=== PATIENT | male | born 1995 | race Caucasian/White ===

== ENCOUNTER 2016-12-29 14:59 | Inpatient (IN) | payer MEDICAID ==
--- NOTE | 2016-12-29 15:26 | EDPHY ---
HPI/HX/ROS/PE/MDM Narrative: CHIEF COMPLAINT: Infected spider bite HISTORY OF PRESENT ILLNESS: This patient is a 21 year old male complaining of pain secondary to two lesions on his back for the last one and a half weeks. He states he thinks he was bitten by a spider, and has since developed MRSA in the area. He reports he has history of MRSA infection in his ankle and arm. This is his third visit for this problem in the last three days. He was previously seen at [facility] and [facility] in [place]. He readily admits he has not filled his prescription for Bactrim, and states he will not be able to, and he is feeling quite helpless. He states he is currently homeless, and does not have anywhere clean and safe to recover. He endorses subjective fever. No chills, chest pain, shortness of breath, palpitations, vomiting, diarrhea, urinary complaints, headache, lightheadedness. REVIEW OF SYSTEMS: Aside from elements discussed in the HPI, a comprehensive 10-point review of systems was reviewed and is negative. PAST MEDICAL HISTORY: MRSA ankle and arm. SOCIAL HISTORY: IV drug use. Originally from [place]. VITAL SIGNS: Reviewed by me GENERAL: Disheveled, dirty clothing and skin. HEENT: Atraumatic. Mouth: moist mucous membranes. LUNGS: Clear to auscultation bilaterally, no wheezes, rhonchi or rales. CARDIAC: Regular rate and rhythm, no rubs, murmurs or gallops. ABDOMEN: Trace erythema spreading to right abdominal wall. Soft, nontender, nondistended, bowel sounds normal. BACK: 10cm x 4cm erythematous area in right paraspinous region. Drainage from two I&D sites, packing remains in one site. Erythema spreading to right anterior abdominal wall. EXTREMITIES: No trauma. No edema. Range of motion is normal throughout. NEURO: Alert and oriented, grossly nonfocal. SKIN: Warm and dry, no rash. PSYCHIATRIC: Normal mentation, no agitation. Portions of this note were transcribed by a medical chemist. I personally performed a history, physical exam, medical decision making, and confirmed accuracy of information the transcribed note. (Solange Fields) ED Course: This patient is a 21 year old male seen in three emergency room visits in the last three days for treatment of abscess in his right lateral paraspinous area. Plan for I&D of area. See procedure note. Plan for admission for continued management of his abscesses. 17:52 Dr. Steele, hospitalist, accepts admission. 18:[address] Hart. Lateral abscess drained and packed. Medial abscess packed, 1cm x 1cm x 2cm pocket remains. No evidence of infection tracking up the patient's back at this time. (Solange Fields) MDM: Procedure: Incision and Drainage abscess. The patient's abscess was located on the back. Risks, benefits, alternatives discussed with the patient and consent obtained. The area was prepped and draped in sterile fashion. The patient received local anesthesia with 1% lidocaine with epinephrine. The abscess was incised with a #11 blade and purulent drainage was expressed. The patient tolerated the procedure well. Quarter-inch iodoform packing placed The procedure was performed by myself. ( Karla Block) - Data Points Imaging Results: Imaging Impressions Chest Ultrasound 12/29/16 17:10 Impression: Two right posterior back fluid collections with the largest measuring 2 cm representing phlegmon/early abscess fluid collections. Findings and recommendations discussed with emergency department physician, Solange Fields MD at 1820 hours on December 29, 2016. Final report concurs with initial preliminary interpretation. Laboratory Results: Laboratory Results 12/29/16 15:15 12/29/16 15:15 12/29/16 12/29/16 12/29/16 16:43 15:15 15:15 WBC RBC Hgb POC Hgb Hct POC Hct MCV MCH MCHC RDW Plt Count MPV Neut % (Auto) Lymph % (Auto) Chester % (Auto) Eos % (Auto) Baso % (Auto) Nucleat RBC Rel Count Absolute Neuts (auto) Absolute Lymphs (auto) Absolute Monos (auto) Absolute Eos (auto) Absolute Basos (auto) Absolute Nucleated RBC Immature Gran % Immature Gran # PT 12.0 SEC SEC (12.0-15.0) INR 0.90 (0.83-1.16) APTT 29.7 SEC SEC (23.0-38.0) VBG Lactic Acid 1.4 mmol/L mmol/L (0.7-2.1) POC Sodium Sodium POC Potassium Potassium POC Chloride Chloride Carbon Dioxide Anion Gap POC BUN BUN Creatinine POC Creatinine Estimated GFR Glucose POC Glucose Calcium Total Bilirubin HIV 1&2 Antibody Pending 12/29/16 12/29/16 12/29/16 15:15 15:15 15:03 WBC 12.45 10^3/uL H 10^3/uL (3.80-9.50) RBC 4.95 10^6/uL 10^6/uL (4.40-6.38) Hgb 15.0 g/dL g/dL (13.7-17.5) POC Hgb 16.7 gm/dL gm/dL (13.7-17.5) Hct 45.2 % % (40.0-51.0) POC Hct 49 % % (40-51) MCV 91.3 fL fL (81.5-99.8) MCH 30.3 pg pg (27.9-34.1) MCHC 33.2 g/dL g/dL (32.4-36.7) RDW 12.7 % % (11.5-15.2) Plt Count 329 10^3/uL 10^3/uL (150-400) MPV 9.7 fL fL (8.7-11.7) Neut % (Auto) 62.0 % % (39.3-74.2) Lymph % (Auto) 23.2 % % (15.0-45.0) Chester % (Auto) 9.4 % % (4.5-13.0) Eos % (Auto) 4.4 % % (0.6-7.6) Baso % (Auto) 0.6 % % (0.3-1.7) Nucleat RBC Rel Count 0.0 % % (0.0-0.2) Absolute Neuts (auto) 7.71 10^3/uL H 10^3/uL (1.70-6.50) Absolute Lymphs (auto) 2.89 10^3/uL 10^3/uL (1.00-3.00) Absolute Monos (auto) 1.17 10^3/uL H 10^3/uL (0.30-0.80) Absolute Eos (auto) 0.55 10^3/uL H 10^3/uL (0.03-0.40) Absolute Basos (auto) 0.08 10^3/uL 10^3/uL (0.02-0.10) Absolute Nucleated RBC 0.00 10^3/uL 10^3/uL (0-0.01) Immature Gran % 0.4 % % (0.0-1.1) Immature Gran # 0.05 10^3/uL 10^3/uL (0.00-0.10) PT INR APTT VBG Lactic Acid POC Sodium 141 mEq/L mEq/L (134-144) Sodium 138 mEq/L mEq/L (134-144) POC Potassium 3.8 mEq/L mEq/L (3.3-5.0) Potassium 4.2 mEq/L mEq/L (3.5-5.2) POC Chloride 98 mEq/L mEq/L (97-110) Chloride 99 mEq/L mEq/L (97-110) Carbon Dioxide 28 mEq/l mEq/l (22-31) Anion Gap 11 mEq/L mEq/L (8-16) POC BUN 8 mg/dL mg/dL (7-23) BUN 9 mg/dL mg/dL (7-23) Creatinine 0.8 mg/dL mg/dL (0.7-1.3) POC Creatinine 0.8 mg/dL mg/dL (0.7-1.3) Estimated GFR > 60 Glucose 73 mg/dL mg/dL (70-100) POC Glucose 82 mg/dL mg/dL (70-100) Calcium 9.5 mg/dL mg/dL (8.5-10.4) Total Bilirubin 0.5 mg/dL mg/dL (0.1-1.4) HIV 1&2 Antibody Medications Given: Discontinued Medications Fentanyl (Sublimaze) 75 mcg IVP EDNOW ONE Stop: 12/29/16 16:33 Last Admin: 12/29/16 16:41 Dose: 75 mcg Vancomycin/Sodium Chloride (Vancomycin 1 Gm (Premix)) 250 mls @ 250 mls/hr IV EDNOW ONE PRN Reason: Protocol Stop: 12/29/16 17:14 Last Admin: 12/29/16 16:21 Dose: 250 mls Point of Care Test Results: 12/29/16 15:03 POC Sodium 141 POC Potassium 3.8 POC Chloride 98 POC BUN 8 POC Creatinine 0.8 POC Glucose 82 General Time Seen by Provider: 12/29/16 15:19 Initial Vital Signs: Initial Vital Signs Temperature (C) 36.5 C 12/29/16 14:59 Heart Rate 92 12/29/16 14:59 Respiratory Rate 14 12/29/16 14:59 Blood Pressure 133/86 H 12/29/16 14:59 O2 Sat (%) 98 12/29/16 14:59 O2 Delivery Mode Room Air Allergies/Adverse Reactions: No Known Allergies Allergy (Unverified 12/29/16 15:19) Home Medications: Medication Instructions Recorded NK [No Known Home Meds] 12/29/16 Departure - Departure Disposition: [facility] Inpatient Acute Clinical Impression: Abscess of lower back Condition: Fair Report Scribed for: Solange Fields Report Scribed by: Carol Aragon Date of Report: 12/29/16 Time of Report: 15:25
[2016-12-29 15:59] LABS: % IMMATURE GRANULYOCYTES 0.4 % (0.0-1.1); ABSOLUTE IMMATURE GRANULOCYTES 0.05 10^3/uL (0.00-0.10); ADD DIFF? NO; ADD MORPH? NO; ADD SCAN? NO; ATYPICAL LYMPHOCYTE FLAG 40 (0-99); FRAGMENT RBC FLAG 0 (0-99); HEMATOCRIT 45.2 % (40.0-51.0); LEFT SHIFT FLG 10 (0-99); LIPEMIA HEMOLYSIS FLAG 80 (0-99); MEAN CELL HEMOGLOBIN 30.3 pg (27.9-34.1); MEAN CELL HEMOGLOBIN CONCENTR. 33.2 g/dL (32.4-36.7); MEAN CELL VOLUME 91.3 fL (81.5-99.8); MEAN PLATELET VOLUME 9.7 fL (8.7-11.7); PLATELET CLUMPS FLAG 10 (0-99); PLATELET COUNT 329 10^3/uL (150-400); RED BLOOD CELL COUNT 4.95 10^6/uL (4.40-6.38); RED CELL DISTRIBUTION WIDTH 12.7 % (11.5-15.2)
[2016-12-29 16:08] LABS: ANION GAP 11 mEq/L (8-16); BILIRUBIN,TOTAL 0.5 mg/dL (0.1-1.4); CALCIUM 9.5 mg/dL (8.5-10.4); CARBON DIOXIDE 28 mEq/l (22-31); CHLORIDE 99 mEq/L (97-110); CREATININE 0.8 mg/dL (0.7-1.3); GLOMERULAR FILTRATION RATE > 60; GLUCOSE 73 mg/dL (70-100); INR 0.9 (0.83-1.16); POTASSIUM 4.2 mEq/L (3.5-5.2); SODIUM 138 mEq/L (134-144)
[2016-12-29 16:09] LABS: APTT 29.7 SEC (23.0-38.0)
[2016-12-29] MEDS ORDERED: VANCOMYCIN HCL/NORMAL SALINE 250 ML IV ONE (16:15)
[2016-12-29] MEDS ORDERED: fentaNYL 100 MCG/2 ML INJ IVP ONE (16:32)
[2016-12-29] MEDS ORDERED: ONDANSETRON 4 MG/2 ML VIAL IVP PRN (18:12)
[2016-12-29] MEDS ORDERED: ZOLPIDEM TARTRATE 5 MG TAB PO PRN (18:12)
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
[2016-12-29] MEDS: risperiDONE 0.5 MG TAB PO SCH (22:37)
[2016-12-30] MEDS: VANCOMYCIN 1.25 GM in D5W 250 ML IV SCH ×2 (05:08→18:06)
[2016-12-30 05:11] LABS: % IMMATURE GRANULYOCYTES 0.3 % (0.0-1.1); ABSOLUTE IMMATURE GRANULOCYTES 0.03 10^3/uL (0.00-0.10); ADD DIFF? NO; ADD MORPH? NO; ADD SCAN? NO; ATYPICAL LYMPHOCYTE FLAG 30 (0-99); FRAGMENT RBC FLAG 0 (0-99); HEMATOCRIT 42.9 % (40.0-51.0); HEMOGLOBIN 14.4 g/dL (13.7-17.5); LEFT SHIFT FLG 0 (0-99); LIPEMIA HEMOLYSIS FLAG 80 (0-99); MEAN CELL HEMOGLOBIN 29.9 pg (27.9-34.1); MEAN CELL HEMOGLOBIN CONCENTR. 33.6 g/dL (32.4-36.7); MEAN CELL VOLUME 89.2 fL (81.5-99.8); MEAN PLATELET VOLUME 9.2 fL (8.7-11.7); PLATELET CLUMPS FLAG 0 (0-99); PLATELET COUNT 278 10^3/uL (150-400); RED BLOOD CELL COUNT 4.81 10^6/uL (4.40-6.38); RED CELL DISTRIBUTION WIDTH 12.7 % (11.5-15.2)
[2016-12-30 05:21] LABS: ANION GAP 10 mEq/L (8-16); CALCIUM 9.4 mg/dL (8.5-10.4); CARBON DIOXIDE 25 mEq/l (22-31); CHLORIDE 103 mEq/L (97-110); CREATININE 0.7 mg/dL (0.7-1.3); GLOMERULAR FILTRATION RATE > 60; GLUCOSE 98 mg/dL (70-100); POTASSIUM 4.3 mEq/L (3.5-5.2); SODIUM 138 mEq/L (134-144)
[2016-12-30] MEDS: KETOROLAC 30 MG/1 ML SDV IVP PRN ×2 (10:46→18:27)
[2016-12-30] MEDS ORDERED: BUPIVACAINE 0.5% 30 ML SDV ONE (11:53)
--- NOTE | 2016-12-30 13:02 | WOCRNPDOC ---
EVANS Advanced Assessment Note - Skin Integrity Problem, Advanced Assess Right Lower Back Surgical Wound/Incision Dressing Type: ABD Pad, Packing (1/4 inch ) Dressing Description: Intact, Shadowed Exudate Amount: Moderate Exudate Characteristic(s): Sanguinopurulent Integumentary Issue Intervention: Dressing Removed Henrique Wound Tissue: Erythema (to 3 cm henrique both wounds), Swollen, Painful/Tender Henrique Wound Swelling: Moderate Wound Bed Constitution: Tunneling (medial wound 4.5 cm at 4 oclock ), Undermining (bilateral wounds 0.6 cm circumferentially) Site Odor: Slight, Foul Site Measurement - Head-to-Toe Length X Width X Depth (cm): Medial: 0.6x0.8x0.7 , Lateral: 1.3x1x0.5 Extremity Temperature: Warm Skin Integrity Problem Comment: Bilateral I and D sites with ongoing purulence and pain. Dr. Diane ID in room for consult. Surgery consult placed. Covered area with 4x4 gauze for Dr[address] Melendez to assess. Please reconsult prn per Dr. Melendez request.
[2016-12-30] MEDS ORDERED: LR 1,000 ML IV ONE (15:54)
[2016-12-30] MEDS ORDERED: MIDAZOLAM 2 MG/2 ML VIAL IVP ONE (16:22)
--- NOTE | 2016-12-30 16:22 | PDANEPAE ---
ANE History of Present Illness 21 yo M with STI back here for I+D ANE Past Medical History - Pulmonary History Hx Oxygen in Use at Home: No - Endocrine History Hx Diabetes: No ANE Review of Systems - Exercise capacity Exercise capacity: >=4 METS - Systems Skin: Reports: other (soft tissue infection back) Neurological: Reports: other (blind R eye) ANE Patient History - Allergies Allergies/Adverse Reactions: No Known Allergies Allergy (Unverified 12/29/16 15:19) - Home Medications Home Medications: NK [No Known Home Meds] 12/29/16 [Last Taken Unknown] - NPO status NPO Since - Liquids (Date): 12/30/16 NPO Since - Liquids (Time): 08:00 NPO Since - Solids (Date): 12/30/16 NPO Since - Solids (Time): 08:00 - Anes Hx Anes Hx: no prior problems - Smoking Hx Smoking Status: Current every day smoker - Alcohol Use Alcohol Use: None - Family Anes Hx Family Anes Hx: none ANE Labs/Vital Signs - Labs Result Diagrams: 12/30/16 04:42 12/30/16 04:42 - Vital Signs Blood Pressure: 133/86 Heart Rate: 79 Respiratory Rate: 14 O2 Sat (%): 97 Height: 190.5 cm Weight: 83.915 kg ANE Physical Exam - Airway Neck exam: FROM Mallampati Score: Class 2 Mouth exam: normal dental/mouth exam - Pulmonary Pulmonary: no respiratory distress, clear to auscultation - Cardiovascular Cardiovascular: regular rate and rhythym, no murmur, rub, or gallop - ASA Status ASA Status: II ANE Anesthesia Plan Anesthesia Plan: general endotracheal anesthesia
[2016-12-30] MEDS ORDERED: MIDAZOLAM 2 MG/2 ML VIAL ONE (16:23)
[2016-12-30] MEDS ORDERED: fentaNYL 100 MCG/2 ML INJ ONE ×2 (16:28→18:25)
[2016-12-30] MEDS ORDERED: PROPOFOL 200 MG/20 ML VIAL ONE ×2 (16:28)
[2016-12-30] MEDS ORDERED: ROCURONIUM 50 MG/5 ML VIAL ONE (16:33)
[2016-12-30] MEDS ORDERED: DEXAMETHASONE 4 MG/ML VIAL ONE (17:10)
[2016-12-30] MEDS ORDERED: ONDANSETRON 4 MG/2 ML VIAL ONE (17:10)
[2016-12-30] MEDS ORDERED: THROMBIN (BOVINE) 5,000 UNIT VIAL TP ONE (17:14)
[2016-12-30] MEDS ORDERED: fentaNYL 100 MCG/2 ML INJ IVP PRN (17:16)
[2016-12-30] MEDS ORDERED: OXYCODONE/APAP 5/325 TAB PO PRN (17:16)
[2016-12-30] MEDS ORDERED: HYDROmorphONE/DILAUDID 1 MG/ML SYR IVP PRN (17:16)
[2016-12-30] MEDS ORDERED: NALOXONE HCL 0.4 MG/ML INJ IVP PRN (17:16)
[2016-12-30] MEDS ORDERED: ACETAMINOPHEN 500 MG TAB PO PRN (17:16)
[2016-12-30] MEDS ORDERED: ONDANSETRON 4 MG/2 ML VIAL IVP PRN (17:16)
[2016-12-30] MEDS ORDERED: PROMETHAZINE HCL 25 MG/ML INJ IVP PRN (17:16)
--- NOTE | 2016-12-30 17:32 | HOSPPROG ---
Hospitalist Progress Note Assessment/Plan: * MRSA back abscess -reportedly MRSA found at other hospital -IV Vanco - consult ID - d/w Dr. Diane -needs further debridement - d/w Dr. Melendez - to OR * IVDA -HIV negative * Bipolar -needs outpatient mental health follow-up Subjective: Lots of pain in back. Very hot. Objective: Vital Signs Temp Pulse Resp BP Pulse Ox 36.6 C 79 14 133/86 H 97 12/30/16 13:31 12/30/16 16:22 12/30/16 16:22 12/30/16 16:22 12/30/16 16:22 Laboratory Results 12/30/16 04:42 12/30/16 04:42 12/29/16 12/30/16 12/31/16 05:59 05:59 05:59 Intake Total 1250 Output Total 800 Balance 1250 -800 PT 12.0 SEC (12.0-15.0) 12/29/16 15:15 INR 0.90 (0.83-1.16) 12/29/16 15:15 US reviewed - still with abscess - suspect this was done prior to ER I&D - Physical Exam Constitutional: no apparent distress, appears nourished, not in pain Cardiovascular: regular rate and rhythym, no murmur, rub, or gallop Respiratory: no respiratory distress, no rales or rhonchi, clear to auscultation Gastrointestinal: normoactive bowel sounds, soft, non-tender abdomen, no palpable masses Skin: erythema, induration, fluctuance, rash, other (purulent drainage from large very tender back abscess) Neurologic: AAOx3, sensation intact bilaterally Psychiatric: interacting appropriately, not anxious, not encephalopathic, thought process linear ICD10 Worksheet Patient Problems: Problems Problem Status Onset Abscess of lower back Acute - ICD10 Problem Qualifiers (1) Abscess of lower back
--- NOTE | 2016-12-30 17:39 | POSTANESTH ---
Post Anesthetic Evaluation Cardiovascular Status: Normal, Stable, Similar to Pre-Op Cond Respiratory Status: Normal, Stable, Similar to Pre-op Cond. Level of Consciousness/Mental Status: Moderately Sleepy Pain Control: Adequate, Prn Tx Ordered Nausea/Vomiting Control: Adequate, Prn Tx Ordered Complications Possibly Related to Anesthesia: None Noted
--- NOTE | 2016-12-30 18:15 | SOAPPROG ---
SOAP Progress Note Assessment/Plan: Assessment: 21-YEAR-OLD MALE WITH MRSA ABSCESSES/ NOW WITH A LARGE NECROTIC DRAINING ABSCESS CAVITY ON HIS BACK WHICH WAS I&D'd IN THE EMERGENCY ROOM NEEDS DRAINAGE AND DEBRIDEMENT/RISKS AND OPTIONS FULLY DISCUSSED AND HE WISHES TO PROCEED Plan: EXCISIONAL DEBRIDEMENT OF A BACK ABSCESS 12/30/16 18:11 Objective: Vital Signs Temp Pulse Resp BP Pulse Ox 36.2 C 79 14 133/86 H 97 12/30/16 17:46 12/30/16 16:22 12/30/16 16:22 12/30/16 16:22 12/30/16 16:22 Laboratory Results 12/30/16 04:42 12/30/16 04:42 12/29/16 12/30/16 12/31/16 05:59 05:59 05:59 Intake Total 1250 Output Total 800 Balance 1250 -800 PT 12.0 SEC (12.0-15.0) 12/29/16 15:15 INR 0.90 (0.83-1.16) 12/29/16 15:15 ICD10 Worksheet Patient Problems: Problems Problem Status Onset Abscess of lower back Acute
--- NOTE | 2016-12-30 18:17 | POSTOPPROG ---
Post Op Note Date of Operation: 12/30/16 Surgeon: Raciel Melendez Anesthesiologist: IVAN Anesthesia: GET(General Endotracheal) Pre-op Diagnosis: BACK ABSCESS Post-op Diagnosis: SAME Indication: INFECTION Procedure: EXCISIONAL DEBRIDEMENT OF A BACK ABSCESS Findings: NECROTIC ABSCESS TISSUE CONSISTENT WITH MRSA Inf/Abcess present in the surg proc area at time of surgery?: Yes Depth: Superfical (Skin SQ) EBL: Minimal Complications: NONE Specimen(s): CULTURE AND NECROTIC TISSUE
[2016-12-30] MEDS ORDERED: KETOROLAC 30 MG/1 ML SDV ONE (18:25)
[2016-12-30] MEDS: risperiDONE 0.5 MG TAB PO SCH (20:06)
[2016-12-30] MEDS: oxyCODONE IR 5 MG TAB PO PRN (20:06)
[2016-12-31] MEDS: oxyCODONE IR 5 MG TAB PO PRN ×3 (03:42→19:41)
[2016-12-31 04:22] LABS: % IMMATURE GRANULYOCYTES 0.5 % (0.0-1.1); ABSOLUTE IMMATURE GRANULOCYTES 0.05 10^3/uL (0.00-0.10); ADD DIFF? NO; ADD MORPH? NO; ADD SCAN? NO; ATYPICAL LYMPHOCYTE FLAG 30 (0-99); FRAGMENT RBC FLAG 0 (0-99); HEMATOCRIT 41.5 % (40.0-51.0); LEFT SHIFT FLG 10 (0-99); LIPEMIA HEMOLYSIS FLAG 80 (0-99); MEAN CELL HEMOGLOBIN 30.4 pg (27.9-34.1); MEAN CELL HEMOGLOBIN CONCENTR. 33.7 g/dL (32.4-36.7); MEAN PLATELET VOLUME 9.4 fL (8.7-11.7); PLATELET CLUMPS FLAG 0 (0-99); PLATELET COUNT 354 10^3/uL (150-400); RED BLOOD CELL COUNT 4.61 10^6/uL (4.40-6.38); RED CELL DISTRIBUTION WIDTH 12.4 % (11.5-15.2)
[2016-12-31] MEDS: VANCOMYCIN 1.5 GM in D5W 250 ML IV SCH ×2 (05:01→17:16)
[2016-12-31] MEDS: VANCOMYCIN 1.25 GM in D5W 250 ML IV SCH (05:05)
[2016-12-31] MEDS: KETOROLAC 30 MG/1 ML SDV IVP PRN (08:04)
[2016-12-31] MEDS: ACETAMINOPHEN 325 MG TAB PO PRN (08:04)
[2016-12-31] MEDS ORDERED: LORazepam 2 MG/ML INJ IVP PRN (10:48)
[2016-12-31] MEDS ORDERED: ZIPRASIDONE MESYLATE 20 MG VIAL IM ONE (10:50)
[2016-12-31] MEDS: LORazepam 2 MG/ML INJ IVP PRN ×2 (11:05→16:13)
--- NOTE | 2016-12-31 12:35 | PCMIDPN ---
Assessment/Plan: Assessment/Plan: 1. Necrotic back abscess: s/p I &D - Currently on IV Vanco. Trough appears to have been drawn early. Now on 1.5gm dosing. -Cultures in progress. GS with gpc in clusters. -Appreciate surgery's assistance in care - Will follow up on cultures and adjust accordingly -wbc trending down. HIV neg. blood cx ngtd Meds vanco 1.5gm q12- Subjective: patient hungry and wants second lunch. denies sob, abd pain or diarrhea. slope tender. Objective: Vital Signs Temp Pulse Resp BP Pulse Ox 36.6 C 67 14 145/86 H 95 12/31/16 12:00 12/31/16 12:00 12/31/16 12:00 12/31/16 12:00 12/31/16 12:00 Microbiology 12/30/16 17:30 Gram Stain - Final Back - Tissue 12/30/16 17:30 Gram Stain - Final Back - Eswab Laboratory Results 12/31/16 03:30 12/30/16 04:42 12/30/16 12/31/16 01/01/17 05:59 05:59 05:59 Intake Total 1250 1160 Output Total 800 410 Balance 1250 360 -410 - Physical Exam General Appearance: alert, no apparent distress Respiratory: lungs clear Cardiac/Chest: regular rate, rhythm Extremities: No swelling Abdomen: normal bowel sounds, non-tender, soft, No distended Back: other (see below) Skin: other (lower back wound packed. dressing saturated with blood. mildly tender on edges. ) ICD10 Worksheet Patient Problems: Problems Problem Status Onset Abscess of lower back Acute
[2016-12-31] MEDS ORDERED: ZIPRASIDONE MESYLATE 20 MG VIAL IM PRN (15:12)
--- NOTE | 2016-12-31 15:15 | HOSPPROG ---
Hospitalist Progress Note Assessment/Plan: * MRSA back abscess s/p debridement necrotic tissue -reportedly MRSA found at other hospital -IV Vanco - ID following - d/w Dr. Mcneil -wound care * IVDA -HIV negative * Bipolar vs. schizophrenia -actively psychotic vs. panic -threatening to leave but concern that he is not decisional -given IM Geodon and IV ativan and now more compliant -discussed with psych - Dr. Owens to consult Subjective: Very agitated, stating he has to leave [place] to "check on his mom" States he feels constant stabbing at his brain. States "I need to sleep now or I am leaving, give me something to sleep" Objective: Vital Signs Temp Pulse Resp BP Pulse Ox 36.6 C 67 14 145/86 H 95 12/31/16 12:00 12/31/16 12:00 12/31/16 12:00 12/31/16 12:00 12/31/16 12:00 Microbiology 12/30/16 17:30 Gram Stain - Final Back - Tissue 12/30/16 17:30 Gram Stain - Final Back - Eswab Laboratory Results 12/31/16 03:30 12/30/16 04:42 12/30/16 12/31/16 01/01/17 05:59 05:59 05:59 Intake Total 1250 1160 Output Total 800 410 Balance 1250 360 -410 PT 12.0 SEC (12.0-15.0) 12/29/16 15:15 INR 0.90 (0.83-1.16) 12/29/16 15:15 - Physical Exam Constitutional: no apparent distress, appears nourished, not in pain Cardiovascular: regular rate and rhythym, no murmur, rub, or gallop Respiratory: no respiratory distress, no rales or rhonchi, clear to auscultation Gastrointestinal: normoactive bowel sounds, soft, non-tender abdomen, no palpable masses Skin: other (open back wound large, bleeding through dressing, but no pus) Neurologic: AAOx3 Psychiatric: anxious, agitated, poor insight, poor judgement, other (very agitated in bed, looks like he is crawling out of his own skin, can't sit still , very distressed), No interacting appropriately, No thought process linear ICD10 Worksheet Patient Problems: Problems Problem Status Onset Abscess of lower back Acute - ICD10 Problem Qualifiers (1) Abscess of lower back
--- NOTE | 2016-12-31 18:00 | SOAPPROG ---
SOAP Progress Note Assessment/Plan: Assessment/Plan: 21 Y M s/p OR I&D back abscess, POD#1. Changed dressing today. Wound clean. Some venous oozing controlled with solver nitrate and pressure. Wound vac may be ideal for wound healing but not sure patient would tolerate this, especially as an outpatient. Would suggest we use hydrofera blue at next dressing change tomorrow. 12/31/16 17:59 Objective: Vital Signs Temp Pulse Resp BP Pulse Ox 36.6 C 76 18 115/68 95 12/31/16 15:35 12/31/16 15:35 12/31/16 15:35 12/31/16 15:35 12/31/16 15:35 Microbiology 12/30/16 17:30 Gram Stain - Final Back - Eswab 12/30/16 17:30 Gram Stain - Final Back - Tissue Laboratory Results 12/31/16 03:30 12/30/16 04:42 12/30/16 12/31/16 01/01/17 05:59 05:59 05:59 Intake Total 1250 1160 Output Total 800 1310 Balance 1250 360 -1310 PT 12.0 SEC (12.0-15.0) 12/29/16 15:15 INR 0.90 (0.83-1.16) 12/29/16 15:15 ICD10 Worksheet Patient Problems: Problems Problem Status Onset Abscess of lower back Acute
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
[2016-12-31] MEDS: ZOLPIDEM TARTRATE 5 MG TAB PO PRN (21:29)
[2017-01-01] MEDS: oxyCODONE IR 5 MG TAB PO PRN ×3 (05:18→19:23)
[2017-01-01] MEDS: LORazepam 2 MG/ML INJ IVP PRN ×2 (05:18→14:16)
[2017-01-01] MEDS: VANCOMYCIN 1.5 GM in D5W 250 ML IV SCH ×2 (05:18→19:24)
[2017-01-01 06:28] LABS: % IMMATURE GRANULYOCYTES 0.3 % (0.0-1.1); ABSOLUTE IMMATURE GRANULOCYTES 0.03 10^3/uL (0.00-0.10); ADD DIFF? NO; ADD MORPH? NO; ADD SCAN? NO; ATYPICAL LYMPHOCYTE FLAG 30 (0-99); FRAGMENT RBC FLAG 0 (0-99); HEMOGLOBIN 14.6 g/dL (13.7-17.5); LEFT SHIFT FLG 0 (0-99); LIPEMIA HEMOLYSIS FLAG 90 (0-99); MEAN CELL HEMOGLOBIN 30.2 pg (27.9-34.1); MEAN PLATELET VOLUME 9.1 fL (8.7-11.7); PLATELET CLUMPS FLAG 10 (0-99); PLATELET COUNT 294 10^3/uL (150-400); RED BLOOD CELL COUNT 4.83 10^6/uL (4.40-6.38); RED CELL DISTRIBUTION WIDTH 12.4 % (11.5-15.2)
[2017-01-01 06:49] LABS: ANION GAP 10 mEq/L (8-16); CALCIUM 9.5 mg/dL (8.5-10.4); CARBON DIOXIDE 24 mEq/l (22-31); CHLORIDE 104 mEq/L (97-110); CREATININE 0.8 mg/dL (0.7-1.3); GLOMERULAR FILTRATION RATE > 60; GLUCOSE 78 mg/dL (70-100); POTASSIUM 4.9 mEq/L (3.5-5.2); SODIUM 138 mEq/L (134-144)
[2017-01-01] MEDS: ZIPRASIDONE HCL 40 MG CAP PO SCH ×2 (10:03→19:24)
--- NOTE | 2017-01-01 10:15 | SOAPPROG ---
SOAP Progress Note Assessment/Plan: Assessment/Plan: 21 Y M s/p OR I&D back abscess, POD#2. Asked wound care to consult today for dressing choice and wound care. Suspect best choice will be hydrofera blue. Doubt patient will tolerate a wound vac. S: feels like he's going crazy and wants to go home. O: alert, nad wound margins soft, no erythema, did not view base--viewed yesterday and will d/ w wound care. 01/01/17 10:13 Objective: Vital Signs Temp Pulse Resp BP Pulse Ox 36.2 C 92 18 117/84 H 96 01/01/17 08:00 01/01/17 08:00 01/01/17 08:00 01/01/17 08:00 01/01/17 08:00 Microbiology 12/30/16 17:30 Gram Stain - Final Back - Tissue 12/30/16 17:30 Gram Stain - Final Back - Eswab Laboratory Results 01/01/17 05:27 01/01/17 05:27 12/31/16 01/01/17 01/02/17 05:59 05:59 05:59 Intake Total 1160 2000 Output Total 800 1310 Balance 360 690 PT 12.0 SEC (12.0-15.0) 12/29/16 15:15 INR 0.90 (0.83-1.16) 12/29/16 15:15 ICD10 Worksheet Patient Problems: Problems Problem Status Onset Abscess of lower back Acute
[2017-01-01] MEDS: ACETAMINOPHEN 325 MG TAB PO PRN (12:40)
[2017-01-01] MEDS: KETOROLAC 30 MG/1 ML SDV IVP PRN (12:40)
[2017-01-01] MEDS ORDERED: diphenhydrAMINE 25 MG CAP PO PRN (13:23)
--- NOTE | 2017-01-01 14:17 | WOCRNPDOC ---
WOCRN Advanced Assessment Note - Skin Integrity Problem, Advanced Assess Right Lower Back Surgical Wound/Incision Dressing Type: ABD Pad, Gauze Dressing Description: Intact, Saturated Exudate Amount: Scant Exudate Characteristic(s): Serosanguinous Integumentary Issue Intervention: Dressing Changed Sameera Wound Swelling: Mild Wound Bed Color: Red, White Wound Bed Constitution: Smooth Tissue, Undermining (5 to 6 oclock 0.5 cm ), Muscle Wound Edges: Well Defined Site Measurement - Head-to-Toe Length X Width X Depth (cm): 4x7x1 Skin Integrity Problem Comment: Wound bed without much healthy tissue. Muscle is white-dipti and wound was not bleeding even after removal of previous wet to dry dressing. Patient requested to visualize wound and a photo was shown to him. He was surprised at the extent/depth of the wound. Cleaned with anasept cleanser. Applied Biostep collagen to wound bed. Covered with hydrofera blue ready and then Allevyn Life dressing. Wound would benefit from NPWT placement with veraflo. Reported to Dr. Cedillo and Heike QURESHI. Unclear at this time if patient would remain hospitalized for long enough for NPWT. Dispo unclear. Awaiting 's discussion with patient.
--- NOTE | 2017-01-01 14:49 | HOSPPROG ---
Hospitalist Progress Note Assessment/Plan: * MRSA back abscess s/p debridement necrotic tissue -IV Vanco -consider wound vac if social situation allows * IVDA -HIV negative * Bipolar -doing better on PO Ulisses -appreciate Dr. Owens's consult * Severe anxiety -ativan prn Subjective: itching badly at back dressing Objective: Vital Signs Temp Pulse Resp BP Pulse Ox 36.2 C 92 18 117/84 H 96 01/01/17 08:00 01/01/17 08:00 01/01/17 08:00 01/01/17 08:00 01/01/17 08:00 Microbiology 12/30/16 17:30 Gram Stain - Final Back - Tissue 12/30/16 17:30 Gram Stain - Final Back - Eswab Laboratory Results 01/01/17 05:27 01/01/17 05:27 12/31/16 01/01/17 01/02/17 05:59 05:59 05:59 Intake Total 1160 2000 Output Total 800 1310 Balance 360 690 PT 12.0 SEC (12.0-15.0) 12/29/16 15:15 INR 0.90 (0.83-1.16) 12/29/16 15:15 d/w rich morales - wound vac would be best, but concern for his ability to follow through with that therapy - Physical Exam Constitutional: no apparent distress, appears nourished, not in pain, uncomfortable Cardiovascular: regular rate and rhythym, no murmur, rub, or gallop Respiratory: no respiratory distress, no rales or rhonchi, clear to auscultation Gastrointestinal: normoactive bowel sounds, soft, non-tender abdomen, no palpable masses Skin: no rashes or abrasions, no fluctuance, no induration Neurologic: AAOx3, sensation intact bilaterally Psychiatric: anxious, agitated, poor insight, poor judgement, No interacting appropriately, No thought process linear ICD10 Worksheet Patient Problems: Problems Problem Status Onset Abscess of lower back Acute - ICD10 Problem Qualifiers (1) Abscess of lower back
--- NOTE | 2017-01-01 16:25 | BCON ---
[f rep st] BEHAVIORAL HEALTH CONSULTATION PSYCHIATRIC CONSULTATION - FOLLOWUP CONTACT PATIENT IDENTIFICATION: The patient presents as a 21-year-old, single, white male, who was admitted to [address] [place] [address] for care of his 2 abscess sites, in need of acute debriding and antibiotic treatment as documented in previous clinical notes, and in my initial Consultation done yesterday. I am following the patient up today to assess his mental status and medication regimen. Input from his assigned nurse indicates the patient's mental status has been improved, with no further episodes of agitation or disorganization. Patient has been cooperative with cares and meds, and has not requested to be precipitously discharged. MENTAL STATUS EXAM: On direct exam, the patient presents as calm, cooperative, and conversant. His thought process is reality based. Speech parameters are within normal limits. He reaffirms his remotely diagnosed Bipolar Disorder and Posttraumatic Stress Disorder. He sustains a cooperative and conversant mode throughout the session. He understands he is on psychiatric medication, which he states has been useful to diminish his anxiety and help organize his thinking. He thought the prescribed medication was Risperdal, which I corrected and stated he is taking the Geodon 40 mg b.i.d. He states he is interested in working on discharge planning, which would include where he would live, and how he could pursue psychiatric and addictive treatment. He is interested in the Team contacting his his family, which he has not been successful in doing. He is unclear about wanting to return to the family home in [place], versus staying in [place] for services. He understands my clarification on how to work with Photocopying Equipment Repairer, when he is medically ready for discharge. IMPRESSION: The patient's mental status is improved, as referenced above. My diagnostic impression is unchanged psychiatrically. RECOMMENDATIONS: 1. Continue standing Geodon 40 mg b.i.d.; continue p.r.n. orders as written for Ativan and Geodon. 2. Suggest Photocopying Equipment Repairer make initial contact with the patient and attempt contact with patient's family through the telephone number of the uncle, which is available on the patient's whiteboard. Feel free to call me with any questions about management or discharge planning at [phone]. /[id number]/MODL MTDD
--- NOTE | 2017-01-01 17:16 | PCMIDPN ---
Assessment/Plan: Assessment: Back/flank abscess. MRSA in culture. Patient on vancomycin 1.5 g IV q.12 hours. Plan to continue this monotherapy. Plan: 1. Continue vancomycin monotherapy. 2. Follow appearance of surgical cavity. 3. Once stable it is possible to switch patient to oral antibiotics for completion of treatment. Subjective: Patient is lying in his hospital bed. He is quite ashlee with staff. Often long pauses and refusing to answer questions. States he just wants to be left alone. No new complaint. Objective: Vancomycin # 3 Vital Signs Temp Pulse Resp BP Pulse Ox 36.7 C 110 H 18 142/87 H 97 01/01/17 16:00 01/01/17 16:00 01/01/17 16:00 01/01/17 16:00 01/01/17 16:00 Microbiology 12/30/16 17:30 Gram Stain - Final Back - Tissue 12/30/16 17:30 Gram Stain - Final Back - Eswab Laboratory Results 01/01/17 05:27 01/01/17 05:27 12/31/16 01/01/17 01/02/17 05:59 05:59 05:59 Intake Total 1160 2000 Output Total 800 1310 Balance 360 690 - Physical Exam General Appearance: WD/WN, alert, no apparent distress, non-toxic Respiratory: lungs clear, normal breath sounds, No respiratory distress Cardiac/Chest: regular rate, rhythm, No tachycardia Back: other (Wound packing), No normal inspection Neuro/Psych: alert, oriented x 3, No normal mood/affect (Angry, irritable) ICD10 Worksheet Patient Problems: Problems Problem Status Onset Abscess of lower back Acute
[2017-01-02] MEDS: LORazepam 2 MG/ML INJ IVP PRN (05:08)
[2017-01-02] MEDS: VANCOMYCIN 1.5 GM in D5W 250 ML IV SCH (05:08)
[2017-01-02] MEDS: oxyCODONE IR 5 MG TAB PO PRN ×3 (05:08→22:09)
--- NOTE | 2017-01-02 06:03 | GCON ---
[f rep st] CONSULTATION INPATIENT INFECTIOUS DISEASE CONSULTATION DATE OF CONSULTATION: 12/30/2016 REFERRING PHYSICIAN: Samia Cedillo MD. REASON FOR REFERRAL: Back abscess, history of MRSA. HISTORY OF PRESENT ILLNESS: Patient is a 21-year-old male who was admitted to [facility] through the emergency room on 12/29/2016. The patient relates he is homeless and uses IV drugs. He developed an abscess over the soft tissues of his back. The patient had reportedly had an inci ifeoma and drainage of the area at previous urgent cares or emergency rooms and had been given antibio tics to continue to treat as an outpatient but was unable to get his antibiotics filled. The patien t had incision and drainage happen again in the emergency room during this visit. His wounds were p acked with packing tape. He was treated initially with IV antibiotics. Currently, he is resting in his hospital room. He is in a significant amount of pain secondary to the lesion on his back. He is writhing in discomfort. He is sobbing. PAST MEDICAL HISTORY: 1. History of MRSA. 2. History of bipolar disorder. 3. History of intravenous methamphetamine use. PAST SURGICAL HISTORY: Status post multiple incisions and drainage. ANTIBIOTICS: Vancomycin. ALLERGIES: The patient has no known drug allergies. SOCIAL HISTORY: The patient is homeless. He has an active methamphetamine user. The patient denie s alcohol but admits to smoking tobacco as well as marijuana. FAMILY HISTORY: Noncontributory. REVIEW OF SYSTEMS: Other than that detailed in the history of present illness, a comprehensive 10-s ystem review is negative. PHYSICAL EXAMINATION: VITAL SIGNS: Temperature maximum is 37.2. temperature current and is 37.0. Heart rate is 92. Respiratory rate is 14. Blood pressure is 133/86. GENERAL: The patient is a w ell-formed, well-nourished, younger male in significant distress secondary to pain. He is nontoxic in appearance. He is alert and oriented x3. He has a pleasant demeanor. HEENT: Normocephalic for age. Atraumatic. No scleral icterus. No oral lesion. No drainage from the nares. Eyes: Lids a nd conjunctivae within normal limits. Pupils equal and round bilaterally. NECK: Supple. No menin gismus. LUNGS: Clear to auscultation bilaterally with good effort. HEART: Regular rate and rhyth m. No murmur heard. SKIN: Warm and dry to the touch. Patient has a skin lesion on his right side of his back in the soft tissues which is inflamed with packing in it. Quite tender to any palpatio n. LABORATORY DATA: Patient has a CBC dated 12/30/2016, which shows a white blood cell count of 8.6, h emoglobin of 14.4, hematocrit 42.9, and platelet count of 278. Serum chemistries on the same date a re all within normal limits. Creatinine 0.7. HIV antibody is negative. ASSESSMENT: Likely methicillin-resistant Staphylococcus aureus abscess in the right back area. Mul tiple superficial incision and drainage episodes have not allowed this to clear. I think he needs f ormal debridement in the operating room. Discussed this with Dr. Cedillo. We will consult General Casey rgery to come evaluate for formal I and D. PLAN: 1. Surgical consult for formal I and D. 2. Continue vancomycin at current dose. Follow vancomycin levels. 3. Follow clinical course. /[id number]/MODL
[2017-01-02] MEDS: KETOROLAC 30 MG/1 ML SDV IVP PRN (07:38)
[2017-01-02] MEDS: ZIPRASIDONE HCL 40 MG CAP PO SCH ×2 (07:40→20:51)
--- NOTE | 2017-01-02 10:05 | PCMIDPN ---
Assessment/Plan: # Right back abscess s/p I and D now with fairly large residual defect in the skin remains but no evidence of ongoing cellulitis or purulence --can change to p.o. antibiotics , doxycycline 100 mg twice daily x3 more days --unclear wound care plan --DC IV vancomycin. Doxycycline ordered Medications IV vancomycin, # 4 Subjective: Patient awake but minimally interactive. Minimal touching of wound on his right back illicits pain response Objective: Vital Signs Temp Pulse Resp BP Pulse Ox 36.6 C 90 18 146/90 H 94 01/02/17 07:34 01/02/17 07:34 01/02/17 07:34 01/02/17 07:34 01/02/17 07:34 Microbiology 12/30/16 17:30 Gram Stain - Final Back - Tissue 12/30/16 17:30 Gram Stain - Final Back - Eswab Laboratory Results 01/01/17 05:27 01/01/17 05:27 01/01/17 01/02/17 01/03/17 05:59 05:59 05:59 Intake Total 2000 1825 Output Total 1310 Balance 690 1825 - Physical Exam General Appearance: alert, no apparent distress, non-toxic Respiratory: No accessory muscle use Back: other (right back wound, approximately 4x7 cm, hydrophera in base; no erythema) Skin: pallor, No rash Neuro/Psych: alert ICD10 Worksheet Patient Problems: Problems Problem Status Onset Abscess of lower back Acute MRSA (methicillin resistant Staphylococcus aureus) Acute ~12/30/16
[2017-01-02] MEDS: ACETAMINOPHEN 325 MG TAB PO PRN (15:48)
[2017-01-02] MEDS ORDERED: LORazepam 2 MG/ML INJ IM PRN (15:58)
--- NOTE | 2017-01-02 16:12 | HOSPPROG ---
Hospitalist Progress Note Assessment/Plan: * MRSA back abscess s/p debridement necrotic tissue -IV Vanco - now on PO doxycycline * Large back wound - much too large to discharge to street -ideally needs wound vac - will heal more rapidly -Fara Velasco to see - contract for no AMA with wound vac * IVDA -HIV negative * Bipolar -doing better on PO Ulisses -appreciate Dr. Owens's consult * Severe anxiety -ativan prn Subjective: Almost left AMA this am. Got to lobby but couldn't get cab so came back. Now agreeable to stay. Objective: Vital Signs Temp Pulse Resp BP Pulse Ox 36.9 C 96 18 121/62 H 94 01/02/17 11:50 01/02/17 11:50 01/02/17 11:50 01/02/17 11:50 01/02/17 11:50 Microbiology 12/30/16 17:30 Gram Stain - Final Back - Tissue 12/30/16 17:30 Gram Stain - Final Back - Eswab Laboratory Results 01/01/17 05:27 01/01/17 05:27 01/01/17 01/02/17 01/03/17 05:59 05:59 05:59 Intake Total 2000 1825 Output Total 1310 Balance 690 1825 PT 12.0 SEC (12.0-15.0) 12/29/16 15:15 INR 0.90 (0.83-1.16) 12/29/16 15:15 - Time Spent With Patient Time Spent with Patient: greater than 35 minutes Time Spent with Patient: Greater than 35 minutes spent on this patients care, greater than 50% of time spent counseling, educating, and coordinating care regarding the above mentioned plan. - Physical Exam Constitutional: appears nourished, not in pain, uncomfortable, No chronically ill appearing Cardiovascular: regular rate and rhythym, no murmur, rub, or gallop Respiratory: no respiratory distress, no rales or rhonchi, clear to auscultation Gastrointestinal: normoactive bowel sounds, soft, non-tender abdomen, no palpable masses Skin: no rashes or abrasions, no fluctuance, no induration, other (dressing on wound not taken down) Neurologic: AAOx3 Psychiatric: anxious, agitated, poor insight, poor judgement, No interacting appropriately, No thought process linear, No poor memory ICD10 Worksheet Patient Problems: Problems Problem Status Onset Abscess of lower back Acute MRSA (methicillin resistant Staphylococcus aureus) Acute ~12/30/16 - ICD10 Problem Qualifiers (1) Abscess of lower back
[2017-01-02] MEDS: DOXYCYCLINE HYCLATE 100 MG CAP/TAB PO SCH ×2 (20:51→22:09)
[2017-01-02] MEDS: ZOLPIDEM TARTRATE 5 MG TAB PO PRN (22:09)
[2017-01-03 03:57] VITALS: PULSE 80
[2017-01-03] MEDS: ACETAMINOPHEN 325 MG TAB PO PRN (04:01)
[2017-01-03 07:15] VITALS: BP 139/80; RESP 18; TEMP 98.2; O2SAT 97
[2017-01-03] MEDS: ZIPRASIDONE HCL 40 MG CAP PO SCH (07:53)
[2017-01-03] MEDS: DOXYCYCLINE HYCLATE 100 MG CAP/TAB PO SCH (07:53)
--- NOTE | 2017-01-03 09:03 | HOSPPROG ---
Hospitalist Progress Note Assessment/Plan: # MRSA abscess s/p I&D - still with large wound - not ready for dc - compliance presents problems with treatment - may not be a candidate for a wound vac - cont doxy, stop date January 05 # IVDA - HIV neg # bipolar/anxiety - Dr Roman vergara's geodon - seems stable currently - ativan prn Subjective: pain over skin lesion improved; going "stir crazy" Objective: Vital Signs Temp Pulse Resp BP Pulse Ox 36.8 C 80 18 139/80 H 97 01/03/17 07:15 01/03/17 07:15 01/03/17 07:15 01/03/17 07:15 01/03/17 07:15 Microbiology 12/30/16 17:30 Gram Stain - Final Back - Tissue 12/30/16 17:30 Gram Stain - Final Back - Eswab Laboratory Results 01/01/17 05:27 01/01/17 05:27 01/02/17 01/03/17 01/04/17 05:59 05:59 05:59 Intake Total 1825 200 Balance 1825 200 PT 12.0 SEC (12.0-15.0) 12/29/16 15:15 INR 0.90 (0.83-1.16) 12/29/16 15:15 back lesion packed with hydrofera blue, no surrounding cellulitis, tissue healthy under dressing - Time Spent With Patient Time Spent with Patient: greater than 35 minutes Time Spent with Patient: Greater than 35 minutes spent on this patients care, greater than 50% of time spent counseling, educating, and coordinating care regarding the above mentioned plan. ICD10 Worksheet Patient Problems: Problems Problem Status Onset MRSA (methicillin resistant Staphylococcus aureus) Acute ~12/30/16 Abscess of lower back Acute
--- NOTE | 2017-01-03 10:02 | GDS ---
[f rep st] DISCHARGE SUMMARY DATE OF AMA DEPARTURE: 01/03/2017. ALL DIAGNOSES: 1. Methicillin-resistant Staphylococcus aureus abscess, status post I and D. 2. Intravenous drug use. 3. Methamphetamine abuse. 4. Bipolar and anxiety. HOSPITAL COURSE: A 21-year-old man admitted with a large back wound, which was I and D, and found t o grow MRSA. Initially treated with vancomycin, and had been switched to doxycycline. He had a lar ge residual wound. Caring for this had been made difficult by compliance issues. Ideally he would have received a wound VAC, though would not contract for compliance, thus ongoing discussions were alvaro eugene. I spoke with him clearly this morning, he told me that he was ready to leave, but did not express immediate intention to leave AMA. I told him he was not ready for discharge, that he was a t very high risk of ongoing complications, including reinfection, need for surgeries, and even poten tially more grim complications. I told him that if he did leave AMA, I would prescribe him antibiot ics, which I had written, though he left before receiving those. He exited the building before I wa s able to return to talk to him as well. Bipolar anxiety: Had seemed to have been doing better on Geodon. In summary, the patient left AMA before I was able to return to see him. I had printed out a prescription for him, though he reported to the nurse that he had antibiotics at home, thus did not need an ongoing prescription. I think he is high risk for ongoing complications and rell medley expressed this to him. /[id number]/MODL
== END 2017-01-03 09:20 | disposition left against medical advice (07) | DRG 572 ==
LOC: OBSVTOIN 18:12 → F3E 18:22
PROVIDERS: ADMIT Internal Medicine; ATTEND Internal Medicine
PROC: 0HB6XZZ Excision of Back Skin, External Approach (ICD-10-PCS; principal; 2016-12-30 16:00)
DX: L02.212 Cutaneous abscess of back [any part, except buttock and flank] (principal); B95.62 Methicillin resistant Staphylococcus aureus infection as the cause of diseases classified elsewhere; F15.10 Other stimulant abuse, uncomplicated; F41.9 Anxiety disorder, unspecified; F31.9 Bipolar disorder, unspecified; F12.90 Cannabis use, unspecified, uncomplicated; Z86.14 Personal history of Methicillin resistant Staphylococcus aureus infection; Z59.0 Homelessness; F43.10 Post-traumatic stress disorder, unspecified
CPT/HCPCS: 82947-QW; 96365; J1100; J1885; J2060; J2250; J2405; J2704; J3010; J3370; J3486